=== PATIENT | female | born 1975 | race Two or more races ===

== ENCOUNTER 2019-04-04 07:50 | Inpatient (IN) | payer OTHER ==
[~2019-04-04] VITALS: Ht 157.5 cm; Wt 77.1 kg
[2019-04-04] MEDS ORDERED: MIDAZOLAM HCL 2 MG/2ML VIAL ONE (10:23)
[2019-04-04] MEDS ORDERED: SCOPOLAMINE HBR 1 EA PATCH.TD72 TD ONE (10:24)
[2019-04-04] MEDS ORDERED: GELATIN SPONGE,ABSORBABLE 1 EA SPONGE TP ONE (10:44)
[2019-04-04] MEDS ORDERED: THROMBIN (BOVINE) 5,000 UNITS VIAL TP ONE (10:45)
[2019-04-04] MEDS ORDERED: CEFAZOLIN 1 GM ONE (10:45)
[2019-04-04] MEDS ORDERED: HEPARIN SODIUM, PORCINE 5000 UNITS/1 ML VIAL ONE (10:47)
[2019-04-04] MEDS ORDERED: BUPIVACAINE 0.5 % PF 150 MG/30 ML VIAL ONE (10:47)
[2019-04-04] MEDS ORDERED: BACITRACIN OPHTH OINT 3.5 GM TUBE ONE (11:34)
[2019-04-04] MEDS ORDERED: HEMOSTATIC MATRIX 8 ML 1 EACH PAD MC ONE (11:36)
[2019-04-04] MEDS ORDERED: PROPOFOL 100 ML ONE (12:13)
[2019-04-04] MEDS ORDERED: FENTANYL PF 100MCG/2ML AMPUL ONE (12:13)
[2019-04-04] MEDS ORDERED: DOCUSATE SODIUM 250 MG CAPSULE PO PRN (15:00)
[2019-04-04] MEDS ORDERED: ACETAMINOPHEN 325 MG TABLET PO PRN ×2 (15:00→18:00)
[2019-04-04] MEDS ORDERED: ZOLPIDEM TARTRATE 5 MG TABLET PO PRN ×2 (15:00→18:00)
[2019-04-04] MEDS ORDERED: ONDANSETRON HCL/PF 4 MG/2 ML VIAL IVP PRN ×2 (15:00→18:00)
--- NOTE | 2019-04-04 15:00 | NUR ---
PMO LEAD NOTES RECEIVED PATIENT FROM PACU. PATIENT AWAKE A/O X3,NO ACUTE RESPIRATORY DISTRESS,UNLABORED, V/S TAKEN T-98.2, P-107, R-20, BP-134/96, O2-97ROON AIR. PATIENT WAS COMPLAINING OF PRESSURE ON LOWER BACK, DRESSING INTACT, DVT PUMP ON, BOWEL SOUNDS PRESENT ON FOUR QUADRANT OF ABDOMEN, CHECKED BLE PULSE PRESENT 2+ SKIN WARM TO TOUCH. IV ACCESS ON LEFT HAND. CALL LIGHT WITHIN TO REACH. SAFETY PRECAUTION MAINTAINED ALL THE [place]. FAMILY NEXT TO THE BED.
--- NOTE | 2019-04-04 15:15 | NUR ---
RN NOTES STARTED NS AT 75 ML/HR ON LEFT HAND INTACT, EDUCATED PATIENT FOR INCENTIVE SPIROMETER AND ENCOURAGED TO USE EVERY HOUR WHILE AWAKE PATIENT VERBALIZED UNDERSTANDING. ORDERS TAKEN AND CARRIED OUT.
[2019-04-04 15:28] VITALS: BP 134/96
[2019-04-04] MEDS ORDERED: AZIL80TA PO (15:38)
[2019-04-04] MEDS ORDERED: ALBU8.5H8 MM (15:38)
[2019-04-04 16:00] VITALS: BP 134/96
--- NOTE | 2019-04-04 16:39 | NUR ---
RN NOTES NOTIFIED Dr NAZARIO FOR NEW PATIENT AND MEDICATION.
[2019-04-04] MEDS: IV NS 0.9% 1,000 ML IV PRN (16:42)
[2019-04-04 17:00] VITALS: BP 139/90
[2019-04-04] MEDS: FAMOTIDINE/PF INJ 20 MG/2 ML VIAL IV SCH (17:23)
[2019-04-04] MEDS: HYDROMORPHONE 1 MG/1 ML DISP.SYRIN IV PRN ×3 (17:24→22:52)
--- NOTE | 2019-04-04 17:24 | NUR ---
rn notes ADMINISTERED DILAUDID 0.2 MG/ML IV PUSH FOR LOWER BACK PAIN 12/05 PER PATIENT REQUEST, V/S TAKEN BP 139/90, P-98, R-20, ALSO ADMINISTERED SCHEDULED MEDICATION. PATIENT USING SPIROMETER, MORE AWAKE, NO ACUTE RESPIRATORY DISTRESS, INFUSING NS AT 75 ML/HR ON LEFT HAND INTACT, DVT PUMP ON. BLE WARM TO TOUCH STRENGTH OF PULSE 2+, FAMILY NEXT TO THE BED, CALL LIGHT WITHIN TO REACH. SEEN BY HOSPITALIST Dr PATEL. CONTINUED MONITORING.
[2019-04-04] MEDS ORDERED: MAGNESIUM HYDROXIDE 30 ML UDC PO PRN (18:00)
[2019-04-04] MEDS ORDERED: Z GUARD REMEDY 2 OZ OINT TP PRN (18:00)
[2019-04-04] MEDS ORDERED: HYDROCODONE/APAP 5/325MG 1 EACH TABLET PO PRN (18:00)
[2019-04-04] MEDS ORDERED: MAG HYDROX/AL HYDROX/SIMETH 30 ML UDC PO PRN (18:00)
[2019-04-04] MEDS ORDERED: MORPHINE SULFATE INJ 2 MG/ML DISP.SYRIN IV PRN (18:00)
--- NOTE | 2019-04-04 18:30 | NUR ---
RN NOTES MEDICATION WERE ADMINISTERED FOR PAIN EFFECTIVE, PATIENT EATING DINNER, V/S STABLE. NO ACUTE RESPIRATORY DISTRESS, SEEN PATIENT BY PAIN MANAGEMENT MD LIMA. CALL LIGHT WITHIN TO REACH. FAMILY NEXT TO THE BED. NEURO CHECK DONE PULE BLE 2+. ENDORSED ONCOMING NURSE FOLLOW PLAN OF CARE.
[2019-04-04] MEDS ORDERED: INFLUENZA VACCINE 2019-20 0.5 ML DISP.SYRIN IM ONE (19:00)
[2019-04-04] MEDS ORDERED: ALBUTEROL FS 2.5 MG/0.5 ML VIAL.NEB NEB PRN (19:30)
--- NOTE | 2019-04-04 19:50 | NUR ---
RN MS OPENING NOTES RECEIVED PT IN BED,AWAKE ALERT ORIENTEDX4, BREATHING EVEN AND UNLABORED ON ROOM RA. PAIN MEDS ADMINISTERED AT 2039, WILL CONTINUE TO MONITOR. IV ACCESS ON THE L HAND 20G, BED INL LOWEST LOCKED POSITION, CALL LIGHT WITHIN REACH AT ALL TIMES, WILL CONTINUE TO MONITOR FREQUENTLY.
[2019-04-04 20:00] VITALS: BP 146/61
[2019-04-04] MEDS: ANCEF 1 GM/50 ML D5W IV SCH ×2 (20:13)
[2019-04-04] MEDS ORDERED: DEXAMETHASONE SOD PHOSPHATE 10 MG/ML VIAL IV ONE (21:00)
[2019-04-04] MEDS: METHOCARBAMOL (500MG) 500 MG TABLET PO SCH (21:04)
[2019-04-05] MEDS: METHOCARBAMOL (500MG) 500 MG TABLET PO SCH ×3 (04:25→21:32)
[2019-04-05] MEDS: ANCEF 1 GM/50 ML D5W IV SCH ×2 (04:25)
[2019-04-05] MEDS: HYDROCODONE/APAP 10/325MG 1 EA TABLET PO PRN (04:25)
[2019-04-05 06:35] LABS: HEMATOCRIT 36 % (33-45); HEMOGLOBIN 12.3 g/dL (11.5-14.8); LYMPHOCYTES % (AUTO) 7.6 % (20.0-44.0); MEAN CORPUSCULAR HGB CONC 34 g/dl (31.0-36.0); MEAN CORPUSCULAR VOLUME 84 fL (82-100); MONOCYTES # (AUTO) 0.3 /CMM (0.1-1.30); MONOCYTES % (AUTO) 2.4 % (2.0-12.0); NEUTROPHILS # (AUTO) 11.6 /CMM (1.8-8.9); PLATELET COUNT (AUTO) 272 /CMM (150-450); RED BLOOD CELL COUNT(AUTO) 4.31 MIL/uL (4.0-5.2); WHITE BLOOD COUNT (AUTO) 12.9 K/uL (4.3-11.0)
--- NOTE | 2019-04-05 06:40 | NUR ---
RN MS CLOSING NOTES PT REMAINS IN BED,AWAKE ALERT ORIENTEDX4, BREATHING EVEN AND UNLABORED ON ROOM RA. IN NO APPARENT PAIN OR DISCOMFORT AT THIS TIME. IV ACCESS ON THE L HAND 20G NS @75ML/HR. OUT OF BED TWICE DURING SHIFT WITH WALKER AND MINIMAL ASSISTANCE. BED IN LOWEST LOCKED POSITION, CALL LIGHT WITHIN REACH AT ALL TIMES, WILL ENDORSE TO DAY NURSE FOR TOÑITO
[2019-04-05 06:55] LABS: CALCIUM, SERUM 8.3 mg/dL (8.5-10.1); CREATININE 0.7 mg/dL (0.6-1.3); MAGNESIUM 1.8 mg/dL (1.8-2.4); PHOSPHORUS 2.3 mg/dL (2.5-4.9); POTASSIUM 3.6 mmol/L (3.5-5.1)
[2019-04-05] MEDS: IV NS 0.9% 1,000 ML IV PRN (07:17)
[2019-04-05 08:00] VITALS: BP 115/67
--- NOTE | 2019-04-05 08:00 | NUR ---
MS RN RECEIVED ON BED, AWAKE,ALERT,ORIENTED X4,NOT IN ANY FORM OF DISTRESS, RESPIRATIONS EVEN AND UNLABOPRED,NO SOB NOTED,LUNGS ARE CLEAR,ABDOMEN SOFT,POSITIVE BOWEL SOUNDS,DENIES PAIN AT THIS TIME,ALL NEEDS ATTENDED.
[2019-04-05] MEDS: FAMOTIDINE/PF INJ 20 MG/2 ML VIAL IV SCH ×2 (08:24→18:17)
[2019-04-05] MEDS ORDERED: DEXAMETHASONE SOD PHOSPHATE 10 MG/ML VIAL IV ONE (09:00)
--- NOTE | 2019-04-05 09:00 | NUR ---
MS WILSON BREAKFAST SERVED,DUE MEDS GIVEN. TOLERATED WELL.
--- NOTE | 2019-04-05 09:30 | NUR ---
MS RN WAS SEEN BY DR. AMANDA Lamar/ ORDERS MADE AND CARRIED OUT.
[2019-04-05] MEDS: HYDROCODONE/APAP 5/325MG 1 EACH TABLET PO PRN ×2 (12:16→18:24)
--- NOTE | 2019-04-05 12:30 | NUR ---
MS RN AT BEDSIDE, CALLED DR. HUNG FOR PRESCRIPTION OF PAIN MEDS, WAS TOLD THAT PATIENT WILL BE DISCHAGRE IN AM INSTEAD.
[2019-04-05] MEDS ORDERED: K PHOS NEUTRAL 250 MG TABLET PO ONE (13:30)
[2019-04-05 16:00] VITALS: BP 133/84
--- NOTE | 2019-04-05 16:00 | NUR ---
MS RN PATIENT ON BED,NO DISTRESS, NOTED.
--- NOTE | 2019-04-05 19:01 | NUR ---
MS RN WILL BE D/C IN AM AFTER BEING SEEN BY DR. HUNG.
[2019-04-05 20:00] VITALS: BP 123/78
[2019-04-06] MEDS: METHOCARBAMOL (500MG) 500 MG TABLET PO SCH ×2 (05:24→12:16)
--- NOTE | 2019-04-06 06:20 | NUR ---
MS RN NOTES AWAKE & RESPONSIVE. NOT IN ANY DISTRESS. NO SOB NOTED. DENIES ANY PAIN OR DISCOMFORT AT THIS TIME. WITH IV-HL PATENT & INTACT. CALL LIGHT WITHIN REACH. BED IN LOWEST POSITION. SR UP X 2 FOR SAFETY. WILL ENDORSE TO NEXT SHIFT.
[2019-04-06] MEDS: HYDROCODONE/APAP 10/325MG 1 EA TABLET PO PRN (06:31)
--- NOTE | 2019-04-06 07:25 | NUR ---
MS/RN NOTE THE PATIENT IS RECEIVED IN BED. ALERT AND ORIENTED X4. IN ROOM AIR AND DENIES SOB. RESPIRATION REGULAR AND UNLABORED. PATIENT COMPLAINS OF BACK PAIN 2/ AND DOES NOT WANT PAIN MEDICATION AT THIS TIME. LEFT HAND G 20 PATENT AND SALINE LOCKED. BED LOW AND LOCKED. SIDE RAILS UP X2. CALL LIGHT WITHIN REACH. WILL CONTINUE TO MONITOR.
[2019-04-06 08:00] VITALS: BP 150/91
[2019-04-06 08:20] VITALS: BP 150/91
[2019-04-06] MEDS: FAMOTIDINE/PF INJ 20 MG/2 ML VIAL IV SCH (08:20)
[2019-04-06] MEDS ORDERED: LOSARTAN POTASSIUM 50 MG TABLET PO SCH (09:00)
--- NOTE | 2019-04-06 11:36 | NUR ---
MS/RN NOTE RECEIVED FLU VACCINE ORDER FROM THE [facility]. THE ORDER IS READ BACK, VERIFIED. NOTED AND CARRIED OUT.
[2019-04-06] MEDS ORDERED: INFLUENZA VACCINE 2019-20 0.5 ML DISP.SYRIN IM ONE (12:00)
--- NOTE | 2019-04-06 14:30 | NUR ---
MS/RN NOTE THE PATIENT ALERT AND ORIENTED X4. IN ROOM AIR AND SATURATION IS AT 97%. DENIES SOB. RESPIRATION REGULAR AND UNLABORED. THE PATIENT COMPLAINS OF BACK PAIN 2/10 BUT REFUSES PAIN MEDICATION. THE PATIENT IS GIVEN DISCHARGED EDUCATION AND SHE VERBALIZED UNDERSTANDING. THE PATIENT IN STABLE CONDITION AND LEAVING THE HOSPITAL ON A PRIVATE CARE WITH HER . PAIN MEDICATION PRESCRIPTION WITH A PATIENT AND COPY IS IN THE CHART.
== END 2019-04-06 14:45 | disposition home or self-care (01) | DRG 520 ==
LOC: DS 07:50 → MED 07:52
PROVIDERS: ADMIT Family Medicine; ATTEND Family Medicine
DX: M51.17 Intervertebral disc disorders with radiculopathy, lumbosacral region (principal); E66.9 Obesity, unspecified; Z68.31 Body mass index [BMI] 31.0-31.9, adult; M47.26 Other spondylosis with radiculopathy, lumbar region; J45.909 Unspecified asthma, uncomplicated; I10 Essential (primary) hypertension; M48.07 Spinal stenosis, lumbosacral region; G62.9 Polyneuropathy, unspecified; G96.12 Meningeal adhesions (cerebral) (spinal)
CPT/HCPCS: 36415; 72020-TC; 80048-TC; 80061-TC; 83735-TC; 84100-TC; 84703-TC; 85025-TC; 86850-TC; 86921-TC; 87081-TC; 88305-TC; 88311-TC; G0378; J0690; J1100; J1170; J1644; J2001; J2250; J2405; J2704; J3010; J3490; J7030; J7060; Q2036

== ENCOUNTER 2019-06-16 08:32 | Inpatient (IN) | payer OTHER ==
[~2019-06-16] VITALS: Ht 157.5 cm; Wt 75.7 kg
[~2019-06-16 08:32] MED LIST: ALBU8.5H8 MM; AZIL80TA PO; BACITRACIN ZINC OINT PACKET 1 EA PACKET TP ONE; LORAZEPAM INJ 2 MG/ML VIAL ONE; TDAP [DIPH/PERTUSSIS/TET] 0.5 ML VIAL IM ONE
[2019-06-16 09:34] LABS: BASOPHILS # (AUTO) 0.1 /CMM (0.0-0.2); BASOPHILS % (AUTO) 0.8 % (0.0-2.0); EOSINOPHILS % (AUTO) 2.2 % (0.0-6.0); HEMATOCRIT 40 % (33-45); HEMOGLOBIN 13.2 g/dL (11.5-14.8); LYMPHOCYTES # (AUTO) 1.6 /CMM (0.8-4.8); LYMPHOCYTES % (AUTO) 15.3 % (20.0-44.0); MEAN CORPUSCULAR HGB CONC 33 g/dl (31.0-36.0); MEAN CORPUSCULAR VOLUME 84 fL (82-100); MONOCYTES # (AUTO) 0.9 /CMM (0.1-1.30); MONOCYTES % (AUTO) 8.7 % (2.0-12.0); NEUTROPHILS # (AUTO) 7.6 /CMM (1.8-8.9); PLATELET COUNT (AUTO) 268 /CMM (150-450); RED BLOOD CELL COUNT(AUTO) 4.77 MIL/uL (4.0-5.2); WHITE BLOOD COUNT (AUTO) 10.4 K/uL (4.3-11.0)
[2019-06-16 09:36] LABS: APPEARANCE,URINE CLEAR (CLEAR); BILIRUBIN,URINE NEGATIVE (NEGATIVE); BLOOD, URINE NEGATIVE Ery/uL (NEGATIVE); COLOR,URINE YELLOW (YELLOW); KETONES,URINE NEGATIVE (NEGATIVE); LEUKOCYTE ESTERASE ,URINE NEGATIVE (NEGATIVE); NITRITE, URINE NEGATIVE (NEGATIVE); PROTEIN,URINE NEGATIVE (NEGATIVE); UGLUCOSE NEGATIVE (NEGATIVE); UROBILINOGEN,URINE 0.2 EU/dL (0.2)
[2019-06-16 09:39] LABS: CALCIUM, SERUM 9.3 mg/dL (8.5-10.1); CREATININE 0.6 mg/dL (0.6-1.3); POTASSIUM 4.3 mmol/L (3.5-5.1)
[2019-06-16 09:46] LABS: ALBUMIN 3.4 g/dL (3.4-5.0); BILIRUBIN,TOTAL 0.6 mg/dL (0.2-1.0); TOTAL PROTEIN, SERUM 7.1 g/dL (6.4-8.2)
[2019-06-16] MEDS ORDERED: HYDROMORPHONE INJ 2 MG/ML DISP.SYRIN ONE (10:28)
[2019-06-16] MEDS ORDERED: MIDAZOLAM HCL 2 MG/2ML VIAL ONE (10:28)
[2019-06-16] MEDS ORDERED: ROCURONIUM BROMIDE 50 MG/5 ML ONE (10:29)
[2019-06-16] MEDS ORDERED: HEPARIN SODIUM, PORCINE 5000 UNITS/1 ML VIAL ONE (10:30)
[2019-06-16] MEDS ORDERED: LIDOCAINE HCL/MPF 1% 30 ML VIAL IJ ONE (11:38)
[2019-06-16] MEDS ORDERED: BUPIVACAINE MPF 0.5% W/EPI INJ 30 ML VIAL ONE (11:38)
[2019-06-16] MEDS ORDERED: HEMOSTATIC MATRIX 8 ML 1 EACH PAD MC ONE (11:38)
[2019-06-16] MEDS ORDERED: GELATIN SPONGE,ABSORBABLE 1 EA SPONGE TP ONE (11:39)
[2019-06-16] MEDS ORDERED: CEFAZOLIN 1 GM ONE (11:39)
[2019-06-16] MEDS ORDERED: THROMBIN (BOVINE) 5,000 UNITS VIAL TP ONE (11:39)
[2019-06-16] MEDS ORDERED: DEXAMETHASONE SOD PHOSPHATE 4 MG/ML VIAL ONE (12:12)
[2019-06-16] MEDS ORDERED: methylPREDNISolone ACETATE 80 MG/ML VIAL ONE (12:35)
[2019-06-16] MEDS ORDERED: FENTANYL PF 100MCG/2ML AMPUL ONE (14:47)
[2019-06-16 16:00] VITALS: BP 133/57
[2019-06-16] MEDS ORDERED: ACETAMINOPHEN 325 MG TABLET PO PRN (16:00)
[2019-06-16] MEDS ORDERED: BISACODYL SUPP (10 MG) 10 MG/SUPP.RECT SUPP.RECT RC PRN (16:00)
[2019-06-16] MEDS ORDERED: ZOLPIDEM TARTRATE 5 MG TABLET PO PRN (16:00)
[2019-06-16] MEDS ORDERED: HYDROCODONE/APAP 5/325MG 1 EACH TABLET PO PRN (16:00)
--- NOTE | 2019-06-16 16:00 | NUR ---
DESPATCHING AND RECEIVING CLERK NOTE PATIENT IS S/P SURGERY[facility] BEDSIDE REPORT GIVEN BY OR NURSE. PATIENT AWAKE AND ALERT X4. ON 2L NC, NO COMPLAINS OF ANY SOB AT THIS TIME. SKIN INTACT. HAS A RIGHT HAND #20 SL. ALL LABS WNL. PATIENT IS COMPLAINING OF SEVERE PAIN. HAS RAPID HR. BED LOCKED AND IN LOWEST POSITION. CALL LIGHT WITHIN REACH. WILL CONTINUE TO MONITOR. FAMILY MEMBER AT BEDSIDE
[2019-06-16] MEDS ORDERED: HYDROMORPHONE INJ 0.5 MG/0.5 ML SYRINGE IV PRN (16:30)
[2019-06-16] MEDS ORDERED: LORAZEPAM 0.5 MG TABLET PO PRN (16:30)
[2019-06-16] MEDS: HYDROCODONE/APAP 10/325MG 1 EA TABLET PO PRN (16:53)
[2019-06-16] MEDS: METHOCARBAMOL (500MG) 500 MG TABLET PO SCH (17:24)
[2019-06-16] MEDS ORDERED: HYDROMORPHONE 1 MG/1 ML DISP.SYRIN IV PRN (17:30)
--- NOTE | 2019-06-16 17:30 | NUR ---
RN NOTE DR AQUINO AT THE NURSING STATION. MADE AWARE THAT PATIENT JUST GOT HERE AND IN NEED OF ADMISSION ORDERS
--- NOTE | 2019-06-16 18:47 | NUR ---
RN CLOSING NOTE PATIENT IN BED, AWAKE AND ALERT. WAS GIVEN NORCO 10 AT 1653 FOR SEVERE BACK PAIN. ON 2L NC, NO COMPLAINS OF ANY SOB. PATIENT STATES THAT SHE WILL CALL IF SHE NEEDS ANOTHER PAIN MED. CALL LIGHT WITHIN REACH. WILL ENDORSE TO NOC SHIFT FOR TOÑITO
--- NOTE | 2019-06-16 19:00 | NUR ---
RN OPENING NOTES: RECEIVED BEDSIDE REPORT FROM AM NURSE. PATIENT IS AAOX4. FAMILY AT BEDSIDE. NO RESPIRATORY DISTRESS. ON 2LPM VIA NC, TOLERATING WELL. NO C/O PAIN AT THIS TIME. SAFETY PRECAUTIONS IMPLEMENTED. BED LOCKED AND IN LOWEST POSITION. SIDE RAILS X 2 UP. ALL NEEDS WILL BE ATTENDED TO. CALL LIGHT PLACED WITHIN REACH. WILL CONT. TO MONITOR.
[2019-06-16] MEDS: ANCEF 1 GM/50 ML D5W IV SCH ×2 (19:57)
[2019-06-16 20:00] VITALS: BP 129/86
[2019-06-16] MEDS: ONDANSETRON HCL/PF 4 MG/2 ML VIAL IV PRN (21:10)
[2019-06-17] MEDS: METHOCARBAMOL (500MG) 500 MG TABLET PO SCH ×3 (00:46→15:40)
[2019-06-17] MEDS: ANCEF 1 GM/50 ML D5W IV SCH ×4 (03:05→10:58)
[2019-06-17 04:00] VITALS: BP 124/81
[2019-06-17] MEDS: HYDROCODONE/APAP 10/325MG 1 EA TABLET PO PRN ×2 (04:19→15:46)
[2019-06-17] MEDS: ONDANSETRON HCL/PF 4 MG/2 ML VIAL IV PRN ×3 (04:19→20:02)
--- NOTE | 2019-06-17 07:30 | NUR ---
RN CLOSING NOTES: PATIENT AWAKE AND VERBALLY RESPONSIVE. NO RESPIRATORY DISTRESS. ON 2LPM VIA NC, TOLERATING WELL. NO C/O PAIN AT THIS TIME. SAFETY PRECAUTIONS IMPLEMENTED. BED LOCKED AND IN LOWEST POSITION. SIDE RAILS X 2 UP. ALL NEEDS ATTENDED TO. CALL LIGHT PLACED WITHIN REACH. ENDORSED TO AM SHIFT NURSE FOR CONTINUITY OF CARE.
--- NOTE | 2019-06-17 07:37 | NUR ---
RN OPENING NOTES RECEIVED PATIENT RESTING IN BED COMFORTABLY. SHE IS AOX4, VERBAL, AND ON BEDREST. SHE IS ON RA, TOLERATING WELL, NO S/SX OF RESP DISTRESS OR SOB. PAIN IS UNDER CONTROL. SKIN IS INTACT, SURGICAL DRESSING ON LUMBAR BACK IS INTACT. SHE IS ON REGULAR DIET, TOLERATING WELL. R HAND 20 G IS PATENT AND INTACT, TKO. PT STATES PAIN MEDICATION MAKES HER NAUSEOUS, DEVELOPED POC WITH PATIENT. SAFETY MEASURES HAVE BEEN IMPLEMENTED, CALL LIGHT IS WITHIN REACH, BED IS IN LOWEST AND LOCKED POSITION, SIDE RAILS UP X2, WILL CONTINUE TO MONITOR FOR ANY CHANGES.
[2019-06-17 08:00] VITALS: BP 129/89
[2019-06-17] MEDS: LOSARTAN POTASSIUM 50 MG TABLET PO SCH (08:21)
--- NOTE | 2019-06-17 11:25 | NUR ---
RN NOTES PER DR. CLEMENTS, PT TO TAKE 1 DOSE OF HOME MED (BYSTOLIC 5 MG) NOW, AND TO CONTINUE HER REGULAR REGIMEN STARTING TOMORROW. PT TAKES ONE DOSE EVERY NIGHT BEFORE BED. WILL CONTINUE TO MONITOR.
[2019-06-17] MEDS: HYDROCODONE/APAP 5/325MG 1 EACH TABLET PO PRN (11:32)
[2019-06-17 12:00] VITALS: BP 129/89
[2019-06-17] MEDS: BYSTOLIC 5 MG PO SCH (12:23)
[2019-06-17 16:00] VITALS: BP 118/80
--- NOTE | 2019-06-17 18:38 | NUR ---
RN CLOSING NOTES PATIENT IS RESTING COMFORTABLY IN BED WITH FAMILY AT BEDSIDE. PT REPORTS PAIN AT INCISION SITE BUT STATES ITS BEARABLE. PT WAS SEEN BY PT TODAY. SHE WAS STARTED BACK AGAIN ON HER HOME MEDICATION. NO ACUTE CHANGES OCCURRED THROUGHOUT THE SHIFT, VITAL SIGNS ARE STABLE, PT NEEDS HAVE BEEN MET. SAFETY MEASURES HAVE BEEN IMPLEMENTED, CALL LIGHT IS WITHIN REACH, BED IS IN LOWEST AND LOCKED POSITION, SIDE RAILS UP X2, WILL ENDORSE TO NIGHTSHIFT RN FOR CONTINUITY OF CARE.
--- NOTE | 2019-06-17 19:33 | NUR ---
MS/RN OPENING NOTES RECEIVED PATIENT IN BED, AWAKE, ALERT X4, ABLE TO VERBALIZE NEEDS, NO GRIMACE OR GUARDING OBSERVED AND REPORTED, RESPIRATIONS EVEN AND UNLABORED, SKIN WARM TO TOUCH. BED LOCKED, CALL LIGHTS WITHIN REACH, PATIENT RERQUIRE ASSISTANCE AND INSTRUCTED TO CALL FOR SUPERVISION USES BACK BRACE WHEN SHE WALKS, RIGHT HAND GAUGE 20 PATENT, MONITORING FOR ANY CHANGESM LEFT LEG WITH SOME IMPAIREMENT REPORTED TO AM RN LAST PAIN MEDICATION GIVEN EARLIER, TO CONTINUE CARE.
[2019-06-17 20:00] VITALS: BP 127/71
[2019-06-18] MEDS: METHOCARBAMOL (500MG) 500 MG TABLET PO SCH ×3 (00:28→16:50)
[2019-06-18] MEDS: HYDROCODONE/APAP 10/325MG 1 EA TABLET PO PRN ×2 (00:48→16:50)
--- NOTE | 2019-06-18 00:50 | NUR ---
ms/rn notes NORCO 10-325 MG PO GIVEN PER PATIENT REPORTED SEVERE PAIN IN LOWER LEFT BACK WHEN CHANGING POSITION, WILL MONITOR RELIEF OF PAIN.
[2019-06-18 04:48] VITALS: BP 127/71
--- NOTE | 2019-06-18 06:24 | NUR ---
MS/RN CLOSING NOTED PATIENT ALERT, ORIENTED X4, ABLE TO VERBALIZE NEEDS, COOPERATIVE TO CARE, PAIN MANAGED, SLEPT LATE BUT ABLE TO SLEEP SOUNDLY FOR FEW HOURS, MONITORED FOR ANY CHANGES, BED LOCKED, CALL LIGHTS WITHIN REACH, PROVIDED FLUIDS. WILL ENDORSE TO AM RN FOR TOÑITO.
[2019-06-18 08:00] VITALS: BP_SYST 103; BP_DIAS 73; BP_DIAS 76
[2019-06-18] MEDS: LOSARTAN POTASSIUM 50 MG TABLET PO SCH (08:30)
[2019-06-18] MEDS: HYDROCODONE/APAP 5/325MG 1 EACH TABLET PO PRN (08:32)
[2019-06-18] MEDS: ONDANSETRON HCL/PF 4 MG/2 ML VIAL IV PRN (13:13)
[2019-06-18 16:00] VITALS: BP 120/71
--- NOTE | 2019-06-18 19:40 | NUR ---
PM MS/RN OPENING NOTES, RECEIVED PATIENT IN BED, ALERT/ORIENTED X4, ABLE TO VERBALIZE NEEDS. NO RESPIRATORY DISTRESS NOTED AT THIS TIME. PATIENT DOES NOT COMPLAIN OF ANY PAIN. INSTRUCTED TO CALL FOR HELP IF NEED TO LEAVE BED. PATIENT USES BACK BRACE TO WALK. IV RH#20, NO S/S OF INFILTRATION. BED IN LOW/LOCKED POSITION, CALL LIGHT WITHIN REACH. WILL CONTINUE TO MONITOR.
[2019-06-18 20:00] VITALS: BP 111/73
[2019-06-18] MEDS: BYSTOLIC 5 MG PO SCH (22:58)
[2019-06-19] MEDS: METHOCARBAMOL (500MG) 500 MG TABLET PO SCH ×2 (00:48→08:18)
[2019-06-19 04:00] VITALS: BP 114/84
--- NOTE | 2019-06-19 06:51 | NUR ---
MS RN CLOSING NOTES, PATIENT IN BED SLEEPING COMFORTABLY, ALERT/ORIENTED X4, ABLE TO VERBALIZE NEEDS. NO RESPIRATORY DISTRESS NOTED AT THIS TIME. PATIENT DOES NOT COMPLAIN OF ANY PAIN. INSTRUCTED TO CALL FOR HELP IF NEED TO LEAVE BED. PATIENT USES BACK BRACE TO WALK. IV, SL RH#20, NO S/S OF INFILTRATION. BED IN LOW/LOCKED POSITION, CALL LIGHT WITHIN REACH. WILL ENDORSE THE PATIENT TO AM RN FOR TOÑITO.
[2019-06-19 07:00] VITALS: BP 127/82
--- NOTE | 2019-06-19 07:15 | NUR ---
RN OPENING NOTE RECEIVED PATIENT IN BED RESTING COMFORTABLY WITH HOB ELEVATED. PATIENT IS WATCHING TV. BREATHING IS EVEN AND NON LABORED. AFEBRILE. A&O X4. BED IS LOWERED AND LOCKED FOR SAFETY. NO COMPLAINTS OF PAIN. WILL CONTINUE TO MONITOR.
[2019-06-19 08:00] VITALS: BP 120/81
[2019-06-19] MEDS: LOSARTAN POTASSIUM 50 MG TABLET PO SCH (08:18)
--- NOTE | 2019-06-19 11:11 | NUR ---
MS/RN NOTES CALLED DR. HUNG'S OFFICE REGARDING THE PATIEN'S DISCHARGE. SPOKE TO DIEGO, ACCORDING TO HER SHE WILL LET THE DOCTOR KNOW AND TO EXPECT FOR A CALL BACK. PATIENT CONTINUES TO REMAIN IN STABLE CONDITION. WILL CONTINUE TO MONITOR CLOSELY.
[2019-06-19 12:00] VITALS: BP 107/73
--- NOTE | 2019-06-19 12:30 | NUR ---
MS/EVENT COORDINATOR NOTES PER DR. HUNG PATIENT IS GOOD FOR DISCHARGE. PATIENT WAS PICKED UP BY AT BEDSIDE. ALL DISCHARGE PAPERS WAS SIGNED AND GIVEN TO THE PATIENT. SKIN ASSESSMENT WAS DONE AND PHOTOS ARE IN THE CHART. IV ACCESS WAS REMOVED BEFORE LEAVING THE UNIT. ALL BELONGINGS WAS TAKEN AND THE BELONGING LIST WAS SIGNED. PATIENT WAS ACCOMPANIED TO THE LOBBY. PATIENT LEFT THE HOSPITAL IN STABLE CONDITION.
== END 2019-06-19 12:00 | disposition home health service (06) | DRG 520 ==
LOC: DS 08:32 → MEDSG1 16:25
PROVIDERS: ADMIT Internal Medicine; ATTEND Internal Medicine
PROC: 00UT07Z Supplement Spinal Meninges with Autologous Tissue Substitute, Open Approach (ICD-10-PCS; principal; 2019-06-16)
PROC: 01NR0ZZ Release Sacral Nerve, Open Approach (ICD-10-PCS; principal; 2019-06-16)
PROC: 01NB0ZZ Release Lumbar Nerve, Open Approach (ICD-10-PCS; principal; 2019-06-16)
PROC: 0ST40ZZ Resection of Lumbosacral Disc, Open Approach (ICD-10-PCS; principal; 2019-06-16)
DX: M51.27 Other intervertebral disc displacement, lumbosacral region (principal); G96.19 Other disorders of meninges, not elsewhere classified; I10 Essential (primary) hypertension; J45.909 Unspecified asthma, uncomplicated; F10.10 Alcohol abuse, uncomplicated; M48.061 Spinal stenosis, lumbar region without neurogenic claudication; N31.9 Neuromuscular dysfunction of bladder, unspecified
CPT/HCPCS: 36415; 72020-TC; 80053-TC; 81000-TC; 84439-TC; 84443-TC; 84481; 84703-TC; 85025-TC; 85610-TC; 85730-TC; 86850-TC; 86921-TC; 87081-TC; 88304-TC; 88311-TC; 90715; 97110-TC; 97116-TC; 97530-TC; G0378; J0690; J1040; J1100; J1170; J1644; J2060; J2250; J2405; J2704; J3010; J3490; J7050; J7060